=== PATIENT | female | born 1965 | race Caucasian/White ===

== ENCOUNTER → 2018-06-22 | Outpatient (CLI) | payer BC ==
[~2018-06-22] MED LIST: ATENOLOL50 MG PO; LEVOTHYROXINE75 MCG PO
--- NOTE | 2018-06-23 10:20 | Diagnostic Imaging Report ---
EXAM: CT Abdomen and Pelvis WITHOUT contrast INDICATION: Left flank pain, kidney stone COMPARISON: None. TECHNIQUE: Abdomen and pelvis were scanned utilizing a multidetector helical scanner from the lung base to the pubic symphysis without administration of IV contrast. Absence of intravenous contrast decreases sensitivity for detection of focal lesions and vascular pathology. Coronal and sagittal reformations were obtained. Renal stone protocol was performed. Dose modulation, iterative reconstruction, and/or weight based adjustment of the mA/kV was utilized to reduce the radiation dose to as low as reasonably achievable. IV CONTRAST: None. ORAL CONTRAST: None RADIATION DOSE: Total DLP: 269.43 mGy*cm Estimated effective dose: (DLP x 0.015 x size factor) mSv COMPLICATIONS: None FINDINGS: LINES and TUBES: None LOWER THORAX: Lung bases are clear with mild dependent lower lobe atelectasis. Heart size normal. HEPATOBILIARY: No focal hepatic lesions. No biliary ductal dilation. GALLBLADDER: No radio-opaque stones or sludge. No wall thickening. SPLEEN: No splenomegaly. PANCREAS: No focal masses or ductal dilatation. ADRENALS: No adrenal nodules KIDNEYS/URETERS: No hydronephrosis. No cystic or solid mass lesions. No stones. GI TRACT: No abnormal distention, wall thickening, or evidence of bowel obstruction. Appendix is normal. PELVIC ORGANS/BLADDER: Urinary bladder unremarkable. The uterus is anteverted. No discrete abnormal mass or fluid collection in the pelvis. LYMPH NODES: No dominant lymph node mass is seen in the abdomen, retroperitoneum or pelvis. VESSELS: Unenhanced abdominal aorta is unremarkable with no aneurysm. PERITONEUM / RETROPERITONEUM: No pneumoperitoneum or ascites. BONES: No acute or suspicious bony lesions. Degenerative change with disc space narrowing at L5-S1. SOFT TISSUES: Superficial surrounding soft tissue unremarkable. There is a small umbilical hernia containing fat. IMPRESSION: 1. No urinary tract calculus is seen. No hydronephrosis or perinephric stranding. 2. No CT evidence for acute abdominal or pelvic pathology. Staff: Amy Signed by: Dr. Julian Reyes M.D. on 06/23/2018 10:16 AM
== END ==
LOC: CT 16:29
PROVIDERS: ATTEND Internal Medicine Nephrology
DX: N20.0 Calculus of kidney (principal); N39.0 Urinary tract infection, site not specified
CPT/HCPCS: 74176